=== PATIENT | female | born 1990 | race Caucasian/White ===

== ENCOUNTER 2019-10-02 00:25 | Emergency (ER) | payer BC, SELFPAY ==
[~2019-10-02] VITALS: Ht 154.9 cm; Wt 42.2 kg
[2019-10-02 00:26] VITALS: Ht 154.9 cm; Wt 42.2 kg
[2019-10-02 01:16] VITALS: BP 125/79
== END 2019-10-02 01:16 | disposition home or self-care (01) ==
LOC: ED 00:25
DX: F41.9 Anxiety disorder, unspecified (principal); Z20.828 Contact with and (suspected) exposure to other viral communicable diseases; R06.02 Shortness of breath
CPT/HCPCS: U0003-CS